=== PATIENT | female | born 1975 | race Caucasian/White ===

== ENCOUNTER 2017-10-02 13:14 | Emergency (ER) | payer OTHER ==
[~2017-10-02] VITALS: Ht 160 cm; Wt 113.0 kg
[2017-10-02 13:15] VITALS: BP 158/88; PULSE 113; RESP 20; TEMP 98.2; O2SAT 97
[2017-10-02] MEDS ORDERED: ADIP37.55 PO (13:28)
[2017-10-02] MEDS ORDERED: MELO15TA20 PO (13:28)
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
== END 2017-10-02 15:48 | disposition home or self-care (01) ==
LOC: NEPD 13:14
DX: S60.021A Contusion of right index finger without damage to nail, initial encounter (principal); M19.90 Unspecified osteoarthritis, unspecified site; Z79.899 Other long term (current) drug therapy; V43.52XA Car driver injured in collision with other type car in traffic accident, initial encounter
CPT/HCPCS: 29130; 73140